=== PATIENT | male | born 1990 | race Caucasian/White ===

== ENCOUNTER 2018-10-06 08:22 | Emergency (ER) | payer OTHER ==
[~2018-10-06] VITALS: Ht 175.3 cm; Wt 85.7 kg
--- NOTE | 2018-10-06 09:05 | NUR ---
RECEIVED BEDSIDE REPORT FROM TED THAKUR. ASSUMING PT CARE AT THIS TIME.
--- NOTE | 2018-10-06 09:39 | NUR ---
28 Y/O MALE PRESENTS TO ED WITH C/O EPIGASTRIC PAIN. "I'VE HAD THIS PAIN FOR ABOUT 4 HOURS. ITS ABOVE MY STOMACH. I'VE HAD HEARTBURN BEFORE, BUT THIS IS WORSE. I'VE TAKEN ABOUT 4 TUMS. NOTHING HAS HELPED." NO ACUTE DISTRESS NOTED. NO C/O N/V/D, TRAUMA, SYNCOPE, CP, SOB. PT PLACED ON CONT PULSE OX, NIBP.
[2018-10-06 10:03] LABS: BASOPHILS # (AUTO) 0.06 x10^3/uL (0-0.1); BASOPHILS % (AUTO) 1 % (0-1); EOSINOPHILS % (AUTO) 6 % (1-7); LYMPHOCYTES % (AUTO) 22 % (22-44); MD NO; MEAN CORPUSCULAR HEMOGLOBIN 32.2 pg (27.5-34.5); MEAN CORPUSCULAR HGB CONC 34.7 g/dL (33.2-36.2); MEAN CORPUSCULAR VOLUME 92.8 fL (81-97); MEAN PLATELET VOLUME 8.3 fL (7.4-10.4); MONOCYTES # (AUTO) 0.71 x10^3/uL (0.2-0.8); MONOCYTES % (AUTO) 10 % (2-9); NEUTROPHILS # (AUTO) 4.46 x10^3/uL (1.8-6.8); NEUTROPHILS % (AUTO) 62 % (42-75); PLATELET COUNT 284 x10^3/uL (130-400); RED BLOOD COUNT 4.61 x10^6/uL (4.38-5.82); RED CELL DISTRIBUTION WIDTH 12.4 % (9.4-14.8)
[2018-10-06 10:14] LABS: ALBUMIN 4.2 g/dL (3.4-5.0); ANION GAP 6 mmol/L (5-15); CALCIUM 9.1 mg/dL (8.5-10.1); CHLORIDE 104 mmol/L (98-107); CREATININE 0.97 mg/dL (0.7-1.3)
--- NOTE | 2018-10-06 10:29 | NUR ---
PT RESTING ON [employer] PLAYING ON CELL PHONE. PT DENIES PAIN AT THIS TIME. NO ACUTE DISTRESS NOTED. NO NEEDS REQUESTED AT THIS TIME.
[2018-10-06 10:31] LABS: ALANINE AMINOTRANSFERASE 62 U/L (12-78); ALKALINE PHOSPHATASE 71 U/L (45-117); TOTAL PROTEIN 7.4 g/dL (6.4-8.2); TROPONIN I < 0.015 ng/mL (0.000-0.045)
[2018-10-06 10:33] LABS: BILIRUBIN,TOTAL 0.5 mg/dL (0.2-1.0)
[2018-10-06 11:09] VITALS: BP 120/82
--- NOTE | 2018-10-06 11:40 | NUR ---
Patient/Caregiver given discharge instructions and they have confirmed that they understand the instructions. Patient ambulatory with steady gait. PT LEFT WITH ALL PERSONAL BELONGINGS.
== END 2018-10-06 11:43 | disposition home or self-care (01) ==
LOC: ED 10:37
DX: R10.13 Epigastric pain (principal)
CPT/HCPCS: 36415; 80053; 84484; 85025; 86677; 93005; 99284